=== PATIENT | female | born 1950 | race Caucasian/White ===

== ENCOUNTER → 2022-07-27 | Outpatient (CLI) | payer MEDICARE, OTHER ==
[2022-07-27 13:53] LABS: BUN/CREATININE RATIO 15 (0-10)
== END ==
LOC: MRI 08:00 → EMI 08:00 → MRI 12:27
PROVIDERS: Urology
DX: D49.512 Neoplasm of unspecified behavior of left kidney (principal); D35.00 Benign neoplasm of unspecified adrenal gland; N28.89 Other specified disorders of kidney and ureter
CPT/HCPCS: 36415; 74183; 80048; A9577